=== PATIENT | female | born 1945 | race Hispanic/Latino ===

== ENCOUNTER 2017-08-21 05:57 | Emergency (ER) | payer BC, MEDICARE ==
[2017-08-21 05:57] VITALS: BMI 27.6
--- NOTE | 2017-08-21 09:32 | C.PDOC ---
History Of Present Illness 72 y/o female presents to the ER complaining of feeling anxious and depressed for the past 1 year. Patient admits to having auditory hallucinations and feeling paranoid. Patient states that she was prerviously on psychiatric medications (unsure of name), but is not currently taking the medications. Patient denies suicidal/homicidal ideations or physical complaints. Time Seen by Provider: 08/21/17 07:05 Chief Complaint (Nursing): Psychiatric Evaluation History Per: Patient History/Exam Limitations: no limitations Onset/Duration Of Symptoms: Days Current Symptoms Are (Timing): Still Present Severity: Moderate Associated Symptoms: Depression, Paranoia. denies: Suicidal Thoughts Past Medical History Reviewed: Historical Data, Nursing Documentation, Vital Signs Vital Signs: Last Vital Signs Temp 98 F 08/21/17 10:32 Pulse 78 08/21/17 10:32 Resp 18 08/21/17 10:32 BP 136/69 08/21/17 10:32 Pulse Ox 98 08/21/17 10:32 - Medical History PMH: Deep Vein Thrombosis Other PMH: depression Surgical History: No Surg Hx Family History: States: No Known Family Hx - Social History Hx Tobacco Use: No Hx Alcohol Use: No Hx Substance Use: No - Immunization History Hx Tetanus Toxoid Vaccination: No Hx Influenza Vaccination: Yes Hx Pneumococcal Vaccination: No Review Of Systems Except As Marked, All Systems Reviewed And Found Negative. Constitutional: Negative for: Fever, Chills Cardiovascular: Negative for: Chest Pain Respiratory: Negative for: Shortness of Breath Gastrointestinal: Negative for: Abdominal Pain Neurological: Negative for: Dizziness Psych: Positive for: Anxiety, Depression. Negative for: Psychosis, Suicidal ideation Physical Exam - Physical Exam Appears: Well, Non-toxic, No Acute Distress, Other (flat affect ) Skin: Normal Color, Warm Head: Atraumatic, Normacephalic Eye(s): bilateral: Normal Inspection Oral Mucosa: Moist Neck: Supple Cardiovascular: Rhythm Regular Respiratory: Normal Breath Sounds, No Rales, No Rhonchi, No Wheezing Neurological/Psych: Oriented x3, Normal Speech, Normal Cognition Gait: Steady ED Course And Treatment O2 Sat by Pulse Oximetry: 100 (RA) Pulse Ox Interpretation: Normal Progress Note: Patient evaluated by crisis counselor, who discussed patient with manager operations and procurement psychiatrisy Dr. Turk. Patient given follow up info for Dr. Turk , and was instructed to call and make appt. She understands she should return to ED if her symptoms worsen. Disposition Counseled Patient/Family Regarding: Diagnosis, Need For Followup - Disposition Referrals: Che Turk MD [Staff Provider] - [facility] [Outside] Disposition: HOME/ ROUTINE Disposition Time: 10:15 Condition: STABLE Additional Instructions: FOLLOW UP WITH PSYCHIATRIST WITHIN 1 WEEK RETURN TO ER IF YOU HAVE ANY CONCERNING SYMPTOMS Instructions: Depression, Adult (DC) Forms: [employer] (Jamaican) Print Language: IRISH - POA Present On Arrival: None - Clinical Impression Clinical Impression: Depressive disorder - Scribe Statement The provider has reviewed the documentation as recorded by the Laurenibe Ventura Nava Provider Attestation: All medical record entries made by the Scribe were at my direction and personally dictated by me. I have reviewed the chart and agree that the record accurately reflects my personal performance of the history, physical exam, medical decision making, and the department course for this patient. I have also personally directed, reviewed, and agree with the discharge instructions and disposition.
[2017-08-21 10:33] VITALS: BP 136/69; PULSE 78; RESP 18; TEMP 98
[2017-08-23 11:25] VITALS: O2SAT 100
== END 2017-08-21 10:33 | disposition home or self-care (01) ==
LOC: C.ER 05:57
DX: F32.9 Major depressive disorder, single episode, unspecified (principal)

== ENCOUNTER 2017-11-03 11:47 | Emergency (ER) | payer BC, MEDICARE ==
[2017-11-03 11:47] VITALS: BMI 27.6
[2017-11-03 11:51] VITALS: BP 160/76; PULSE 86; RESP 20; TEMP 98.1; O2SAT 100
--- NOTE | 2017-11-03 12:13 | C.PDOC ---
History Of Present Illness 72-year-old female, PMHx includes Anxiety and Paranoia, presents to the emergency department with complaints of feeling paranoid. Pt requesting to speak with crisis. He denies any SI/HI, nausea/vomiting, chest pain or any other associated symptoms. No other complaints at this time. Time Seen by Provider: 11/03/17 12:11 Chief Complaint (Nursing): Psychiatric Evaluation History Per: Patient History/Exam Limitations: no limitations Current Symptoms Are (Timing): Still Present Past Medical History Reviewed: Historical Data, Nursing Documentation, Vital Signs Vital Signs: Last Vital Signs Temp 98.1 F 11/03/17 11:48 Pulse 86 11/03/17 11:48 Resp 20 11/03/17 11:48 BP 160/76 H 11/03/17 11:48 Pulse Ox 100 11/03/17 16:27 - Medical History PMH: Deep Vein Thrombosis Family History: States: No Known Family Hx - Social History Hx Tobacco Use: No Hx Alcohol Use: No Hx Substance Use: No - Immunization History Hx Tetanus Toxoid Vaccination: No Hx Influenza Vaccination: Yes Hx Pneumococcal Vaccination: No Review Of Systems Constitutional: Negative for: Fever Cardiovascular: Negative for: Chest Pain, Palpitations Gastrointestinal: Negative for: Nausea, Vomiting Psych: Positive for: Anxiety (Paranoia) Physical Exam - Physical Exam Appears: Non-toxic, No Acute Distress Skin: Normal Color, Warm, Dry, No Rash Head: Atraumatic, Normacephalic Eye(s): bilateral: Normal Inspection, PERRL, EOMI Nose: Normal Oral Mucosa: Moist Lips: Normal Appearing Neck: Normal ROM Chest: Symmetrical Cardiovascular: Rhythm Regular, No Murmur Respiratory: Normal Breath Sounds, No Accessory Muscle Use Extremity: Normal ROM, No Tenderness, No Deformity, No Swelling Neurological/Psych: Oriented x3, Normal Speech ED Course And Treatment O2 Sat by Pulse Oximetry: 100 (RA) Pulse Ox Interpretation: Normal Medical Decision Making Medical Decision Making: hold worker Jaelyn evaluated patient and discussed with Dr Turk and has appointment for tomorrow at 4pm Disposition Counseled Patient/Family Regarding: Diagnosis, Need For Followup, Rx Given - Disposition [facility]errals[facility]] Disposition: HOME/ ROUTINE Disposition Time: 12:35 Condition: GOOD Additional Instructions: Follow up tomorrow 4 pm Instructions: Anxiety, Adult (DC) Forms: [employer] (Emirati) - POA Present On Arrival: None - Clinical Impression Clinical Impression: Anxiety - Scribe Statement The provider has reviewed the documentation as recorded by the Scribe (Bee Petit) All medical record entries made by the Scribe were at my direction and personally dictated by me. I have reviewed the chart and agree that the record accurately reflects my personal performance of the history, physical exam, medical decision making, and the department course for this patient. I have also personally directed, reviewed, and agree with the discharge instructions and disposition.
== END 2017-11-03 12:39 | disposition home or self-care (01) ==
LOC: C.ER 11:47
DX: F41.9 Anxiety disorder, unspecified (principal)

== ENCOUNTER 2018-01-15 13:21 | Emergency (ER) | payer BC, MEDICARE ==
[2018-01-15 13:21] VITALS: BMI 27.6
[2018-01-15 13:33] VITALS: RESP 18; O2SAT 98
--- NOTE | 2018-01-15 14:15 | C.PDOC ---
History Of Present Illness <Farrah Rothman - Last Filed: 01/15/18 19:27> <Bakari Nam DO - Last Filed: 01/15/18 23:38> Patient is a 72 year old female with reports for evaluation of anxiety and depression. She states she feels as though she is constantly being harassed, and she states she is unable to go to her doctor's offices. She states she feels as though she is "programmed for different colors where red means something, blue means something else." She states she is also feeling depressed and has been crying constantly. She states she feels like she wants to walk out into the street and leave her house. She feels like psychiatrist and Jehovah's witnesses are constantly out to get her. She states she has occasional thoughts of harming herself. When asked if she has thoughts of harming herself currently, she states that she journals and doesn't answer the question clearly. She feels like people are constantly reading her thoughts. She admits to hearing voices, but she usually ignores it. She denies visual hallucinations. She denies thoughts of harming anyone else. She is currently receiving treatment from [facility], however states she wants to talk. ( Farrah Rothman) <Farrah Rothman - Last Filed: 01/15/18 19:27> <Bakari Nam DO - Last Filed: 01/15/18 23:38> Chief Complaint (Nursing): Psychiatric Evaluation Past Medical History - Medical History PMH: Anxiety, Deep Vein Thrombosis Denies: Depression, Diabetes, Hepatitis, HIV, HTN, Seizures, Sexually Transmitted Disease Family History: States: Unknown Family Hx - Social History Hx Tobacco Use: No Hx Alcohol Use: No Hx Substance Use: No - Immunization History Hx Tetanus Toxoid Vaccination: No Hx Influenza Vaccination: No Hx Pneumococcal Vaccination: No <Farrah Rothman - Last Filed: 01/15/18 19:27> Vital Signs: Last Vital Signs Temp 98 F 01/15/18 17:08 Pulse 63 01/15/18 17:08 Resp 18 01/15/18 17:08 BP 117/73 01/15/18 17:08 Pulse Ox 98 01/15/18 19:28 Review Of Systems Constitutional: Negative for: Fever, Sweats Cardiovascular: Negative for: Chest Pain, Palpitations Respiratory: Negative for: Shortness of Breath Gastrointestinal: Negative for: Nausea, Vomiting, Abdominal Pain, Diarrhea Genitourinary: Negative for: Dysuria Psych: Positive for: Anxiety, Depression <Farrah Rothman - Last Filed: 01/15/18 19:27> Physical Exam - Physical Exam Appears: Other (Anxious) Skin: Warm, Dry Head: Atraumatic, Normacephalic Eye(s): bilateral: PERRL, EOMI Oral Mucosa: Moist Cardiovascular: Rhythm Regular, No Murmur, No JVD Respiratory: Normal Breath Sounds, No Rales, No Rhonchi, No Stridor, No Wheezing Gastrointestinal/Abdominal: Bowel Sounds, Soft, No Tenderness Back: Normal Inspection Extremity: No Pedal Edema, No Calf Tenderness Pulses: Left Dorsalis Pedis: Normal, Right Dorsalis Pedis: Normal <Farrah Rothman - Last Filed: 01/15/18 19:27> ED Course And Treatment - Laboratory Results Result Diagrams: 01/15/18 15:50 01/15/18 16:10 O2 Sat by Pulse Oximetry: 98 - Radiology CXR: Read By Radiologist CXR Interpretation: Yes: No Acute Disease <Farrah Rothman - Last Filed: 01/15/18 19:27> - Laboratory Results Result Diagrams: 01/15/18 15:50 01/15/18 16:10 <Bakari Nam DO - Last Filed: 01/15/18 23:38> Medical Decision Making <Farrah Rothman - Last Filed: 01/15/18 19:27> <Bakari Nam DO - Last Filed: 01/15/18 23:38> Medical Decision Making: CBC with diff, CMP, UA, alcohol screen, UDS within normal limits. sales engineering manager spoke with patient who provided patient with phone number for partial program for [facility]. She told personal lines account manager that she just needed to talk to someone. Patient states she simply wants to talk to someone about her anxiety and depression. She denies current thoughts of harming self or others. ( Farrah Rothman) Disposition - Disposition Disposition Time: 17:00 <Farrah Rothman - Last Filed: 01/15/18 19:27> - Disposition Disposition Time: 16:10 <Bakari Nam DO - Last Filed: 01/15/18 23:38> - Disposition Referrals: Michel Clements MD [Medical Doctor] - Disposition: HOME/ ROUTINE Condition: GOOD Additional Instructions: DIOR SUAREZ, thank you for letting us take care of you today. Your provider was Bakari Nam DO and you were treated for ANXIETY. The emergency medical care you received today was directed at your acute symptoms. If you were prescribed any medication, please fill it and take as directed. It may take several days for your symptoms to resolve. Return to the Emergency Department if your symptoms worsen, do not improve, or if you have any other problems. Please contact your doctor or call one of the physicians/clinics you have been referred to that are listed on the Patient Visit Information form that is included in your discharge packet. Bring any paperwork you were given at discharge with you along with any medications you are taking to your follow up visit. Our treatment cannot replace ongoing medical care by a primary care provider outside of the emergency department. Thank you for allowing the [employer] team to be part of your care today. Please follow up as instructed by our psychiatric team and follow up with your primary care doctor in 1-2 days for further treatment. Prescriptions: ALPRAZolam [Xanax] 0.25 mg PO Q8 PRN #10 tab PRN Reason: Anxiety Instructions: Generalized Anxiety Disorder Forms: [employer] (Bulgarian) - Clinical Impression Clinical Impression: Generalized anxiety disorder
--- NOTE | 2018-01-15 15:29 | RAD ---
Date of service: 01/15/2018 PROCEDURE: CHEST RADIOGRAPH, 1 VIEW HISTORY: Detox/Psy COMPARISON: None available. FINDINGS: LUNGS: The lungs are well inflated and clear. PLEURA: No pneumothorax or pleural fluid seen. CARDIOVASCULAR: Normal. OSSEOUS STRUCTURES: No significant abnormalities. VISUALIZED UPPER ABDOMEN: Normal. OTHER FINDINGS: None. IMPRESSION: No active pulmonary disease.
[2018-01-15 15:58] LABS: BASO # 0.1 K/uL (0.0-0.2); BASO % 0.9 % (0.0-2.0); EOS # 0.2 K/uL (0.0-0.7); HEMOGLOBIN 14.8 g/dL (11.0-16.0); LYMPH # 2.8 K/uL (1.0-4.3); LYMPH % 36.2 % (20.0-40.0); MEAN CELL VOLUME 94.4 fL (81.0-99.0); MEAN CORPUSCULAR HEMOGLOBIN 32.3 pg (27.0-31.0); MEAN CORPUSCULAR HGB CONC 34.2 g/dL (33.0-37.0); MEAN PLATELET VOLUME 7.6 fL (7.2-11.7); MONO # 0.6 K/uL (0.0-0.8); MONO % 7.7 % (0.0-10.0); NEUT # 4.1 K/uL (1.8-7.0); NEUT % 53.2 % (50.0-75.0); NRBC % 0.1 % (0.0-2.0); RBC 4.58 Mil/uL (3.80-5.20); RED CELL DISTRIBUTION WIDTH 13.3 % (11.5-14.5); URINE BILIRUBIN NEGATIVE (NEGATIVE); URINE BLOOD 1+ (NEGATIVE); URINE CLARITY Clear (Clear); URINE COLOR Yellow (YELLOW); URINE GLUCOSE (UA) NORMAL (Normal); URINE LEUKOCYTE ESTERASE NEG Leu/uL (Negative); URINE PROTEIN NEGATIVE (NEGATIVE); URINE UROBILINOGEN NORMAL mg/dL (0.2-1.0); WHITE BLOOD COUNT 7.7 K/uL (4.8-10.8)
[2018-01-15 16:36] LABS: BARBITURATES, UR NEGATIVE (NEGATIVE); BENZODIAZEPINES, UR NEGATIVE (NEGATIVE); OPIATES, UR NEGATIVE (NEGATIVE); PHENCYCLIDINE, UR NEGATIVE (NEGATIVE)
[2018-01-15 16:49] LABS: ALB/GLOB RATIO 1.6 (1.0-2.1); ALBUMIN 4.1 g/dL (3.5-5.0); ALT/SGPT 24 U/L (9-52); AST/SGOT 17 U/L (14-36); BLOOD UREA NITROGEN 13 mg/dL (7-17); CALCIUM 9.1 mg/dl (8.6-10.4); GFR NON-AFRICAN AMERICAN > 60
[2018-01-15 17:23] VITALS: BP 117/73; PULSE 63; TEMP 98
== END 2018-01-15 17:10 | disposition home or self-care (01) ==
LOC: C.ER 13:21
DX: F41.1 Generalized anxiety disorder (principal)
CPT/HCPCS: 71045; 80053; 81001; 85025; 99284; G0480

== ENCOUNTER 2018-04-11 13:56 | Observation (INO) | payer BC, MEDICARE ==
[2018-04-11 13:56] VITALS: BMI 27.6
[2018-04-11 14:43] LABS: BASO % 0.7 % (0.0-2.0); EOS # 0.1 K/uL (0.0-0.7); EOS % 1.4 % (0.0-4.0); HEMOGLOBIN 13.9 g/dL (11.0-16.0); LYMPH % 32.9 % (20.0-40.0); MEAN CELL VOLUME 93.5 fL (81.0-99.0); MEAN CORPUSCULAR HEMOGLOBIN 32.3 pg (27.0-31.0); MEAN CORPUSCULAR HGB CONC 34.6 g/dL (33.0-37.0); MEAN PLATELET VOLUME 7.4 fL (7.2-11.7); MONO # 0.5 K/uL (0.0-0.8); MONO % 8.8 % (0.0-10.0); NEUT # 3.5 K/uL (1.8-7.0); NEUT % 56.2 % (50.0-75.0); NRBC % 0.1 % (0.0-2.0); RBC 4.29 Mil/uL (3.80-5.20); RED CELL DISTRIBUTION WIDTH 13.1 % (11.5-14.5); WHITE BLOOD COUNT 6.1 K/uL (4.8-10.8)
[2018-04-11 14:55] LABS: ALB/GLOB RATIO 1.4 (1.0-2.1); ALBUMIN 4.2 g/dL (3.5-5.0); ALT/SGPT 24 U/L (9-52); AST/SGOT 26 U/L (14-36); BLOOD UREA NITROGEN 13 mg/dL (7-17); CALCIUM 9.4 mg/dl (8.6-10.4); GFR NON-AFRICAN AMERICAN > 60
[2018-04-11 15:07] LABS: B-TYPE NATRIURETIC PEPTIDE 76.9 pg/mL (0-900); CK-MB 0.71 ng/mL (0.0-3.38)
--- NOTE | 2018-04-11 15:10 | RAD ---
Chest x-ray single frontal view History: Chest pain. COMPARISON: 01/15/2018 Findings: Linear atelectasis at the right lung base. Mild venous congestion. Mild patchy increased markings at the left lung base. Tortuous ectatic aorta. Top normal heart size. Minimal biapical pleural thickening. Impression: Linear atelectasis at the right lung base. Mild venous congestion. Mild patchy increased markings at the left lung base. Tortuous ectatic aorta.
--- NOTE | 2018-04-11 16:00 | C.PDOC ---
History Of Present Illness 72 year old female presents to ED for evaluation of intermittent chest pain described as tightness and pressure for the last 2 days. She reports associated shortness of breath with exertion. She reports history of "weak heart muscle". Pt does not have a PMD or independent trader. Otherwise, denies cough, palpitation, abdominal pain, n/v/d, or fever. Time Seen by Provider: 04/11/18 14:00 Chief Complaint (Nursing): Chest Pain History Per: Patient History/Exam Limitations: no limitations Onset/Duration Of Symptoms: Days (2) Current Symptoms Are (Timing): Still Present Quality: Tightness, Pressure Associated Symptoms: denies: Nausea, Diaphoresis, Syncope Modifying Factors: None Exacerbating Factors: None Additional History Per: Patient Past Medical History Reviewed: Historical Data, Nursing Documentation, Vital Signs Vital Signs: Last Vital Signs Temp 98.7 F 04/11/18 15:29 Pulse 68 04/11/18 15:29 Resp 18 04/11/18 15:29 BP 110/73 04/11/18 15:29 Pulse Ox 97 04/11/18 15:29 - Medical History PMH: Anxiety, Deep Vein Thrombosis Denies: Depression, Diabetes, Hepatitis, HIV, HTN, Seizures, Sexually Transmitted Disease Family History: States: Unknown Family Hx - Social History Hx Tobacco Use: No Hx Alcohol Use: No Hx Substance Use: No - Immunization History Hx Tetanus Toxoid Vaccination: No Hx Influenza Vaccination: No Hx Pneumococcal Vaccination: No Review Of Systems Except As Marked, All Systems Reviewed And Found Negative. Constitutional: Negative for: Fever, Chills Cardiovascular: Positive for: Chest Pain. Negative for: Palpitations, Edema, Light Headedness Respiratory: Positive for: SOB with Excertion. Negative for: Cough, Wheezing Gastrointestinal: Negative for: Nausea, Vomiting, Abdominal Pain, Diarrhea Neurological: Negative for: Headache, Dizziness Physical Exam - Physical Exam Appears: Non-toxic, No Acute Distress Skin: Normal Color, Warm, Dry Head: Normacephalic Eye(s): bilateral: Normal Inspection Oral Mucosa: Moist Neck: Normal ROM, Supple Chest: Symmetrical, No Tenderness Cardiovascular: Rhythm Regular, No Murmur Respiratory: Normal Breath Sounds, No Rales, No Rhonchi, No Wheezing Gastrointestinal/Abdominal: Soft, No Tenderness Back: No CVA Tenderness Extremity: Normal ROM, No Pedal Edema Neurological/Psych: Oriented x3, Normal Speech, Other (anxious) ED Course And Treatment - Laboratory Results Result Diagrams: 04/11/18 14:40 04/11/18 14:40 ECG: Interpreted By Me, Viewed By Me ECG Rhythm: Sinus Rhythm ECG Interpretation: No Acute Changes Interpretation Of ECG: Normal axis. No acute ST/T wave changes. Rate From EC (bpm) O2 Sat by Pulse Oximetry: 97 (RA) Pulse Ox Interpretation: Normal - Other Rad CXR X-Ray: Viewed By Me, Read By Radiologist Interpretation: Accession No. : [id number]. Patient Name / ID : ERICK RADER / [id number]. Exam Date : 04/11/2018 14:23:51 ( Approved ). Study Comment : Sex / Age : F / 72Y. Creator : Dimitri Eddy MD. Dictator : Dimitri Eddy MD. Hot Box Operator : Cupola Tender Helper : Dimitri Eddy MD. Approver2 : Report Date : 04/11/2018 15:06:57. My Comment : . Chest x-ray single frontal view. History: Chest pain. COMPARISON: 01/15/2018. Findings: Linear atelectasis at the right lung base. Mild venous congestion. Mild patchy increased markings at the left lung base. Tortuous ectatic aorta. Top normal heart size. Minimal biapical pleural thickening. I mpression: Linear atelectasis at the right lung base. Mild venous congestion. Mild patchy increased markings at the left lung base. Tortuous ectatic aorta. Progress Note: Blood work, EKG, CXR was ordered and reviewed. Pt was given Aspirin. Disposition - Disposition - Scribe Statement The provider has reviewed the documentation as recorded by the Scribe KP All medical record entries made by the Scribe were at my direction and personally dictated by me. I have reviewed the chart and agree that the record accurately reflects my personal performance of the history, physical exam, medical decision making, and the department course for this patient. I have also personally directed, reviewed, and agree with the discharge instructions and disposition.
--- NOTE | 2018-04-11 16:28 | C.PDOC ---
Time Seen by Provider: 04/11/18 14:00 Chief Complaint (Nursing): Chest Pain Past Medical History Vital Signs: Last Vital Signs Temp 98.7 F 04/11/18 15:29 Pulse 68 04/11/18 15:29 Resp 18 04/11/18 15:29 BP 110/73 04/11/18 15:29 Pulse Ox 97 04/11/18 15:29 - Medical History PMH: Anxiety, Deep Vein Thrombosis Denies: Depression, Diabetes, Hepatitis, HIV, HTN, Seizures, Sexually Transmitted Disease Family History: States: Unknown Family Hx - Social History Hx Tobacco Use: No Hx Alcohol Use: No Hx Substance Use: No - Immunization History Hx Tetanus Toxoid Vaccination: No Hx Influenza Vaccination: No Hx Pneumococcal Vaccination: No ED Course And Treatment - Laboratory Results Result Diagrams: 04/11/18 14:40 04/11/18 14:40 O2 Sat by Pulse Oximetry: 97 Disposition - Disposition
--- NOTE | 2018-04-11 17:20 | CP.PCM.HP ---
Past Patient History - Past Social History Smoking Status: Former Smoker - CARDIAC Hx Hypertension: No - PULMONARY Hx Tuberculosis: No - NEUROLOGICAL Hx Seizures: No - HEMATOLOGICAL/ONCOLOGICAL Hx Human Immunodeficiency Virus (HIV): No - GENITOURINARY/GYNECOLOGICAL Hx Sexually Transmitted Disorders: No - PSYCHIATRIC Hx Anxiety: Yes Hx Depression: No Hx Substance Use: No - SURGICAL HISTORY Hx Surgeries: No - ANESTHESIA Hx Anesthesia: No Hx Anesthesia Reactions: No Meds Allergies/Adverse Reactions: Allergies Allergy/AdvReac Type Severity Reaction Status Date / Time codeine Allergy Verified 04/11/18 14:00 Results - Vital Signs Recent Vital Signs: Last Vital Signs Temp 98.7 F 04/11/18 15:29 Pulse 68 04/11/18 15:29 Resp 18 04/11/18 15:29 BP 110/73 04/11/18 15:29 Pulse Ox 97 04/11/18 17:09 - Labs Result Diagrams: 04/11/18 14:40 04/11/18 14:40 Labs: Laboratory Results - last 24 hr 04/11/18 04/11/18 14:40 14:40 WBC 6.1 RBC 4.29 Hgb 13.9 Hct 40.1 MCV 93.5 MCH 32.3 H MCHC 34.6 RDW 13.1 Plt Count 267 MPV 7.4 Neut % (Auto) 56.2 Lymph % (Auto) 32.9 Weber % (Auto) 8.8 Eos % (Auto) 1.4 Baso % (Auto) 0.7 Neut # (Auto) 3.5 Lymph # (Auto) 2.0 Weber # (Auto) 0.5 Eos # (Auto) 0.1 Baso # (Auto) 0.0 Sodium 137 Potassium 4.5 Chloride 103 Carbon Dioxide 26 Anion Gap 12 BUN 13 Creatinine 0.9 Est GFR ( Amer) > 60 Est GFR (Non-Af Amer) > 60 Random Glucose 89 Calcium 9.4 Total Bilirubin 0.8 AST 26 ALT 24 Alkaline Phosphatase 90 Total Creatine Kinase 61 CK-MB (Mass) 0.71 Troponin I < 0.0120 NT-Pro-B Natriuret Pep 76.9 Total Protein 7.3 Albumin 4.2 Globulin 3.1 Albumin/Globulin Ratio 1.4
[2018-04-11] MEDS: Pantoprazole 40 mg EC Tab PO SCH (19:03)
[2018-04-11] MEDS: Enoxaparin 40 mg Syringe SC SCH (19:05)
[2018-04-11 22:37] VITALS: RESP 20
[2018-04-11 23:11] LABS: CK-MB 0.59 ng/mL (0.0-3.38)
[2018-04-12 08:23] LABS: CK-MB 0.61 ng/mL (0.0-3.38)
[2018-04-12] MEDS: Enoxaparin 40 mg Syringe SC SCH (09:34)
[2018-04-12] MEDS: Pantoprazole 40 mg EC Tab PO SCH (09:37)
--- NOTE | 2018-04-12 12:12 | CARD ---
APPROVED REPORT Date of service: 04/11/2018 EKG Measurement Heart [id number] <Conclusion> Normal sinus rhythm Normal ECG
--- NOTE | 2018-04-12 12:27 | CP.PCM.CON ---
History of Present Illness - History of Present Illness History of Present Illness: Admitted for CP Chronic medical problems include: Depression Prior smoker with COPD mild-mod Lipids; On statin therapy Hx of RLE DVT in past RX with AC (7 years ago) CVHX: No IA or CVA Patient reports transient episode of aching central chest and SOB with exertion. Now all sx's have resolved. No diaphoresis, volume overload, dizziness or palpiation. No fevers, chills, cough or URI sx's Review of Systems - Review of Systems All systems: reviewed and no additional remarkable complaints except Past Patient History - Past Social History Smoking Status: Former Smoker - CARDIAC Hx Hypertension: No - PULMONARY Hx Tuberculosis: No - NEUROLOGICAL Hx Seizures: No - HEMATOLOGICAL/ONCOLOGICAL Hx Human Immunodeficiency Virus (HIV): No - GENITOURINARY/GYNECOLOGICAL Hx Sexually Transmitted Disorders: No - PSYCHIATRIC Hx Anxiety: Yes Hx Depression: No Hx Substance Use: No - SURGICAL HISTORY Hx Surgeries: No - ANESTHESIA Hx Anesthesia: No Hx Anesthesia Reactions: No Meds Allergies/Adverse Reactions: Allergies Allergy/AdvReac Type Severity Reaction Status Date / Time codeine Allergy Verified 04/11/18 14:00 - Medications Medications: Current Medications Aspirin (Aspirin) 325 mg PO DAILY [facility] Last Admin: 04/12/18 09:36 Dose: 325 mg Enoxaparin Sodium (Lovenox) 40 mg SC DAILY [facility] Last Admin: 04/12/18 09:34 Dose: 40 mg Influenza Virus Vaccine (Fluzone Quad [id number]) 60 mcg IM .ONCE ONE Stop: 04/13/18 10:01 Pantoprazole Sodium (Protonix Ec Tab) 40 mg PO DAILY [facility] Last Admin: 04/12/18 09:37 Dose: 40 mg Pneumococcal Polyvalent Vaccine (Pneumovax 23 Vaccine) 0.5 ml IM .ONCE ONE Stop: 04/14/18 10:01 Rosuvastatin Calcium (Crestor) 10 mg PO [facility] Physical Exam - Constitutional Appears: No Acute Distress - Head Exam Head Exam: ATRAUMATIC, NORMAL INSPECTION, NORMOCEPHALIC - Eye Exam Eye Exam: EOMI, Normal appearance, PERRL - ENT Exam ENT Exam: Mucous Membranes Moist, Normal Oropharynx - Neck Exam Neck exam: Positive for: Full Rom. Negative for: Tenderness, Thyromegaly - Respiratory Exam Respiratory Exam: Clear to Auscultation Bilateral, NORMAL BREATHING PATTERN. absent: Rhonchi, Wheezes - Cardiovascular Exam Cardiovascular Exam: REGULAR RHYTHM, +S1, +S2. absent: +S4, Systolic Murmur - GI/Abdominal Exam GI & Abdominal Exam: Normal Bowel Sounds, Soft. absent: Tenderness - Extremities Exam Extremities exam: Positive for: normal capillary refill, pedal pulses present. Negative for: calf tenderness, normal inspection (superficial varicose veins CEAP 2-3 changes in legs), tenderness - Back Exam Back exam: absent: CVA tenderness (L), CVA tenderness (R) - Neurological Exam Neurological exam: Alert, CN II-XII Intact, Normal Gait, Oriented x3 Results - Vital Signs Recent Vital Signs: Last Vital Signs Temp 98.4 F 04/12/18 07:00 Pulse 71 04/12/18 09:00 Resp 20 04/12/18 07:00 BP 120/79 04/12/18 07:00 Pulse Ox 100 04/12/18 09:00 - Labs Result Diagrams: 04/11/18 14:40 04/11/18 14:40 Labs: Laboratory Results - last 24 hr 04/11/18 04/11/18 04/11/18 14:40 14:40 22:46 WBC 6.1 RBC 4.29 Hgb 13.9 Hct 40.1 MCV 93.5 MCH 32.3 H MCHC 34.6 RDW 13.1 Plt Count 267 MPV 7.4 Neut % (Auto) 56.2 Lymph % (Auto) 32.9 [place] % (Auto) 8.8 Eos % (Auto) 1.4 Baso % (Auto) 0.7 Neut # (Auto) 3.5 Lymph # (Auto) 2.0 [place] # (Auto) 0.5 Eos # (Auto) 0.1 Baso # (Auto) 0.0 Sodium 137 Potassium 4.5 Chloride 103 Carbon Dioxide 26 Anion Gap 12 BUN 13 Creatinine 0.9 Est GFR ( Amer) > 60 Est GFR (Non-Af Amer) > 60 Random Glucose 89 Calcium 9.4 Total Bilirubin 0.8 AST 26 ALT 24 Alkaline Phosphatase 90 Total Creatine Kinase 61 47 CK-MB (Mass) 0.71 0.59 Troponin I < 0.0120 < 0.0120 NT-Pro-B Natriuret Pep 76.9 Total Protein 7.3 Albumin 4.2 Globulin 3.1 Albumin/Globulin Ratio 1.4 04/12/18 07:48 WBC RBC Hgb Hct MCV MCH MCHC RDW Plt Count MPV Neut % (Auto) Lymph % (Auto) [place] % (Auto) Eos % (Auto) Baso % (Auto) Neut # (Auto) Lymph # (Auto) [place] # (Auto) Eos # (Auto) Baso # (Auto) Sodium Potassium Chloride Carbon Dioxide Anion Gap BUN Creatinine Est GFR ( Amer) Est GFR (Non-Af Amer) Random Glucose Calcium Total Bilirubin AST ALT Alkaline Phosphatase Total Creatine Kinase 33 CK-MB (Mass) 0.61 Troponin I < 0.0120 NT-Pro-B Natriuret Pep Total Protein Albumin Globulin Albumin/Globulin Ratio - EKG Data EKG Interpreted by: Myself Assessment & Plan - Assessment and Plan (Free Text) Assessment: Diagnostics and imaging directly viewed by me: EKG: normal CXR: Linear atelectasis at the right lung base. Mild venous congestion. Impression: CP is atypical and now resolved TROP negative for ACS Exam: negative for ADHF Plan: Echo: LIPID profile If nomal wall motion and EF: suggest medical therapy and outpatient eval for stress testing > cont ASA and statin for now
--- NOTE | 2018-04-12 19:02 | CP.PCM.PN ---
Subjective - Date & Time of Evaluation Date of Evaluation: 04/12/18 Time of Evaluation: 11:30 - Subjective Subjective: clinically same Objective - Vital Signs/Intake and Output Vital Signs (last 24 hours): Temp Pulse Resp BP Pulse Ox 98.0 F 62 20 102/61 100 04/12/18 15:00 04/12/18 16:00 04/12/18 15:00 04/12/18 15:00 04/12/18 16:00 - Medications Medications: Current Medications Aspirin (Aspirin) 325 mg PO DAILY [facility] Last Admin: 04/12/18 09:36 Dose: 325 mg Enoxaparin Sodium (Lovenox) 40 mg SC DAILY [facility] Last Admin: 04/12/18 09:34 Dose: 40 mg Influenza Virus Vaccine (Fluzone Quad [id number]) 60 mcg IM .ONCE ONE Stop: 04/13/18 10:01 Pantoprazole Sodium (Protonix Ec Tab) 40 mg PO DAILY [facility] Last Admin: 04/12/18 09:37 Dose: 40 mg Pneumococcal Polyvalent Vaccine (Pneumovax 23 Vaccine) 0.5 ml IM .ONCE ONE Stop: 04/14/18 10:01 Rosuvastatin Calcium (Crestor) 10 mg PO HS [facility] - Labs Labs: 04/11/18 14:40 04/11/18 14:40
[2018-04-13 08:41] VITALS: O2SAT 99
--- NOTE | 2018-04-13 09:55 | CP.PCM.PN ---
Subjective - Date & Time of Evaluation Date of Evaluation: 04/13/18 Time of Evaluation: 09:54 - Subjective Subjective: Events reviewed Objective - Vital Signs/Intake and Output Vital Signs (last 24 hours): Temp Pulse Resp BP Pulse Ox 97.9 F 66 20 115/70 99 04/13/18 07:00 04/13/18 07:00 04/13/18 07:00 04/13/18 07:00 04/13/18 07:00 Intake and Output: 04/13/18 04/13/18 06:59 18:59 Intake Total 120 Balance 120 - Medications Medications: Current Medications Aspirin (Aspirin) 325 mg PO DAILY [facility] Last Admin: 04/12/18 09:36 Dose: 325 mg Enoxaparin Sodium (Lovenox) 40 mg SC DAILY [facility] Last Admin: 04/12/18 09:34 Dose: 40 mg Influenza Virus Vaccine (Fluzone Quad [id number]) 60 mcg IM .ONCE ONE Stop: 04/13/18 10:01 Pantoprazole Sodium (Protonix Ec Tab) 40 mg PO DAILY [facility] Last Admin: 04/12/18 09:37 Dose: 40 mg Pneumococcal Polyvalent Vaccine (Pneumovax 23 Vaccine) 0.5 ml IM .ONCE ONE Stop: 04/14/18 10:01 Rosuvastatin Calcium (Crestor) 10 mg PO HS [facility] Last Admin: 04/12/18 21:34 Dose: 10 mg - Labs Labs: 04/11/18 14:40 04/11/18 14:40 Assessment and Plan - Assessment and Plan (Free Text) Assessment: - EKG Data EKG Interpreted by: Myself 2D echo images viewed by myself: Normal LV systolic function, normal filling pressures Assessment & Plan - Assessment and Plan (Free Text) Assessment: Diagnostics and imaging directly viewed by me: EKG: normal CXR: Linear atelectasis at the right lung base. Mild venous congestion. Impression: CP is atypical and now resolved TROP negative for ACS Exam: negative for ADHF Plan: D/C home follow up in our office in 1-2 weeks to reassess symptoms and consider further CAD risk stratification.
[2018-04-13] MEDS ORDERED: Influenza Vaccine 60 MCG/0.5 ML SYR (3 yr & up) IM ONE ×2 (10:00→12:15)
--- NOTE | 2018-04-13 10:38 | CARD ---
APPROVED REPORT Date of service: 04/12/2018 EXAM: Two-dimensional and M-mode echocardiogram with Doppler and color Doppler. 2D DIMENSIONS IVSd0.9 (0.7-1.1cm)LVDd3.5 (3.9-5.9cm) PWd0.8 (0.7-1.1cm)LA Pchcpl52 (18-58mL) LVDs2.4 (2.5-4.0cm)FS (%) 32.4 % LVEF (%)61.8 (>50%)LVEF (Wren's)62.01 % M-Mode DIMENSIONS Left Atrium (MM)3.15 (2.5-4.0cm)IVSd0.85 (0.7-1.1cm) Aortic Root3.18 (2.2-3.7cm)LVDd4.37 (4.0-5.6cm) Aortic Cusp Exc.2.02 (1.5-2.0cm)PWd0.80 (0.7-1.1cm) FS (%) 39 %LVDs2.68 (2.0-3.8cm) LVEF (%)69 (>50%) Mitral Valve MV E Hcdxmohy98.9cm/sMV A Qzierfyh08.9cm/sE/A ratio1.0 TDI Lateral E' Peak V8.93cm/sMedial E' Peak V7.32cm/sE/Lateral E'7.4 E/Medial E'9.0 Tricuspid Valve TR Peak Gvbocffi111ht/sTR Peak Gr.[id number] <Conclusion> normal size la,lv & ra rv. normal lv wall motion,thickness,systolic & diastolic funciton with lvef of 60-65%. normal aortic,mitral,tv & pv. mild tr & pi with normal pulmonary systolic pressures of 21 mm of hg. no pericardial effusion. normal size aortic root.
[2018-04-13] MEDS: Enoxaparin 40 mg Syringe SC SCH (11:00)
[2018-04-13] MEDS: Pantoprazole 40 mg EC Tab PO SCH (11:00)
--- NOTE | 2018-04-13 11:53 | CP.PCM.PN ---
Subjective - Date & Time of Evaluation Date of Evaluation: 04/13/18 Time of Evaluation: 12:15 - Subjective Subjective: clinically same Objective - Vital Signs/Intake and Output Vital Signs (last 24 hours): Temp Pulse Resp BP Pulse Ox 97.9 F 66 20 115/70 99 04/13/18 07:00 04/13/18 07:00 04/13/18 07:00 04/13/18 07:00 04/13/18 07:00 Intake and Output: 04/13/18 04/13/18 06:59 18:59 Intake Total 120 Balance 120 - Medications Medications: Current Medications Aspirin (Aspirin) 325 mg PO DAILY [facility] Last Admin: 04/13/18 11:00 Dose: 325 mg Enoxaparin Sodium (Lovenox) 40 mg SC DAILY [facility] Last Admin: 04/13/18 11:00 Dose: Not Given Pantoprazole Sodium (Protonix Ec Tab) 40 mg PO DAILY [facility] Last Admin: 04/13/18 11:00 Dose: 40 mg Pneumococcal Polyvalent Vaccine (Pneumovax 23 Vaccine) 0.5 ml IM .ONCE ONE Stop: 04/14/18 10:01 Rosuvastatin Calcium (Crestor) 10 mg PO HS [facility] Last Admin: 04/12/18 21:34 Dose: 10 mg - Labs Labs: 04/11/18 14:40 04/11/18 14:40 - Constitutional Appears: Well - Head Exam Head Exam: ATRAUMATIC, NORMAL INSPECTION, NORMOCEPHALIC - Eye Exam Eye Exam: EOMI, Normal appearance, PERRL Pupil Exam: NORMAL ACCOMODATION, PERRL - ENT Exam ENT Exam: Mucous Membranes Moist, Normal Exam - Neck Exam Neck Exam: Full ROM, Normal Inspection. absent: Lymphadenopathy - Respiratory Exam Respiratory Exam: Decreased Breath Sounds - Cardiovascular Exam Cardiovascular Exam: REGULAR RHYTHM, +S1, +S2 - GI/Abdominal Exam GI & Abdominal Exam: Soft, Diminished Bowel Sounds - Rectal Exam Rectal Exam: Deferred
--- NOTE | 2018-04-13 15:54 | CP.PCM.PN ---
Subjective - Date & Time of Evaluation Date of Evaluation: 04/13/18 Time of Evaluation: 15:54 - Subjective Subjective: PATIENT SEEN AND EXAMINED AT THE BEDSIDE Objective - Vital Signs/Intake and Output Vital Signs (last 24 hours): Temp Pulse Resp BP Pulse Ox 97.9 F 66 20 115/70 99 04/13/18 07:00 04/13/18 07:00 04/13/18 07:00 04/13/18 07:00 04/13/18 11:57 Intake and Output: 04/13/18 04/13/18 06:59 18:59 Intake Total 120 Balance 120 - Medications Medications: Current Medications Aspirin (Aspirin) 325 mg PO DAILY [facility] Last Admin: 04/13/18 11:00 Dose: 325 mg Enoxaparin Sodium (Lovenox) 40 mg SC DAILY [facility] Last Admin: 04/13/18 11:00 Dose: Not Given Pantoprazole Sodium (Protonix Ec Tab) 40 mg PO DAILY [facility] Last Admin: 04/13/18 11:00 Dose: 40 mg Pneumococcal Polyvalent Vaccine (Pneumovax 23 Vaccine) 0.5 ml IM .ONCE ONE Stop: 04/14/18 10:01 Rosuvastatin Calcium (Crestor) 10 mg PO HS [facility] Last Admin: 04/12/18 21:34 Dose: 10 mg - Labs Labs: 04/11/18 14:40 04/11/18 14:40 Assessment and Plan - Assessment and Plan (Free Text) Assessment: FOLLOW UP WITH DR Luis SCOTT IN HIS OFFICE ----CALL FOR APPOINTMENT FOLLOW UP WITH DR KOTHARI IN 2 WEEK IN HIS OFFICE ----CALL FOR APPOINTMENT ADDRESS YOUR STRESS TEST OUT PATIENT AT YOUR VISIT CONTINUE HOME MEDICATION NEW PRESCRIPTION GIVEN CRESTOR 10 MG BY MOUTH AT NIGHT PROTONIX 40 MG BY MOUTH DAILY ASPIRIN 81 MG BY MOUTH DAILY ACTIVITY TOLERATED CALL DR Luis SCOTT OR GO TO THE EMERGENCY ROOM IF SYMPTOM RETURN OR WORSENING
[2018-04-13 16:51] VITALS: BP 108/68; PULSE 62; TEMP 97.7
[2018-04-14] MEDS ORDERED: Pneumococcal 23-Valent Vaccine IM ONE (10:00)
== END 2018-04-13 16:30 | disposition home or self-care (01) ==
LOC: C.ER 13:56 → C.9E 16:22 → C.6T 20:57
PROVIDERS: ADMIT Internal Medicine Nephrology; ATTEND Internal Medicine Nephrology
DX: R07.89 Other chest pain (principal); F32.9 Major depressive disorder, single episode, unspecified; I50.9 Heart failure, unspecified; J98.11 Atelectasis; Z87.891 Personal history of nicotine dependence; Z86.718 Personal history of other venous thrombosis and embolism; J44.9 Chronic obstructive pulmonary disease, unspecified
CPT/HCPCS: 36415; 71045; 80053; 82550; 82553; 83880; 84484; 85025; 90674; 93005; 93306; 96372; 99285; G0008; G0378; J1650